=== PATIENT | female | born 1975 | race African-American/Black ===

== ENCOUNTER 2022-07-02 15:37 | Emergency (ER) | payer BC, OTHER ==
[~2022-07-02] VITALS: Ht 165.1 cm; Wt 118.0 kg
[2022-07-02 16:52] VITALS: BP 145/96
[2022-07-02 17:29] LABS: Basophils # (auto) 0 10 ^3/uL (0-0.2); Eosinophils # (auto) 0.1 10 ^3/uL (0-0.8); Hematocrit 38.1 % (36.0-46.0); Monocytes # (auto) 0.4 10 ^3/uL (0-1.3); Monocytes % (auto) 4.6 % (0.0-12.0); Neutrophils % (auto) 75.2 % (37.0-80.0); Red Cell Distribution Width 15.5 % (11.8-14.3)
[2022-07-02 17:31] LABS: Basophils % (auto) 0.4 % (0.0-2.0); Eosinophils % (auto) 1.5 % (0.0-7.0); Hemoglobin 12.1 g/dL (12.2-16.2); Lymphocytes # (auto) 1.5 10 ^3/uL (0.4-5.4); Lymphocytes % (auto) 18.3 % (10.0-50.0); Mean Corpuscular Hemoglobin 26.2 pg (28.0-32.0); Mean Corpuscular Hgb Conc. 31.7 g/dL (32.0-36.0); Mean Corpuscular Volume 82.6 fL (80.0-100.0); Neutrophils # (auto) 6.2 10 ^3/uL (1.6-8.6); Nucleated Red Blood Cells % 0.1 %; Red Blood Cells 4.61 10^6/uL (4.0-5.20); White Blood Cell 8.3 10^3/uL (4.4-10.8)
[2022-07-02 17:41] LABS: INR 0.97 (0.9-1.15); Partial Thromboplastin Time 22.9 sec (24.6-33.4)
[2022-07-02 17:48] LABS: Albumin 3.9 g/dL (3.4-5.0); Calcium 8.9 mg/dL (8.5-10.1); Potassium 4.1 mmol/L (3.5-5.1)
[2022-07-02 17:51] LABS: BUN/Creatinine Ratio 10.5; Bilirubin, Total 0.2 mg/dL (0.2-1.0)
== END 2022-07-02 20:00 | disposition home or self-care (01) ==
LOC: ER 15:37
DX: D25.9 Leiomyoma of uterus, unspecified (principal); N93.8 Other specified abnormal uterine and vaginal bleeding; R10.2 Pelvic and perineal pain
CPT/HCPCS: 36415; 76856; 80053; 84702; 85025; 85610; 85730

== ENCOUNTER 2025-08-04 06:18 | Emergency (ER) | payer BC, MEDICAID ==
[~2025-08-04] VITALS: Ht 165.1 cm; Wt 120.0 kg
--- NOTE | 2025-08-04 07:10 | ED.PDOC ---
History of Present Illness HPI Comments A 50 YEAR OLD FEMALE PRESENTS TO THE ED WITH COMPLAINT OF HIGH BLOOD PRESSURE. PATIENT STATES SHE HAS BEEN HAVING HIGH BLOOD PRESSURE FOR THE PAST THREE DAYS. PATIENT STATES SHE WENT TO [facility] YESTERDAY AND HAD LABS DONE AND WAS GIVEN PRESCRIPTION ON HCTZ AND DISCHARGED. PATIENT TAKES CAME TO THE ED TODAY DUE TO A CONSTANT RIGHT-SIDED HEADACHE AND STATES DESPITE TAKING THE PRESCRIBED HCTZ FOR BLOOD PRESSURE AT HOME, BP WAS STILL HIGH AND CAME TO THE ED FOR EVALUATION. PATIENT IN THE ED HAS BLOOD PRESSURE OF 164/107 AND HEART RATE 117 WITH OTHERWISE STABLE VITALS. PATIENT STATES PATIENT DENIES FEVER, CHILLS, SHORTNESS OF BREATH, CHEST PAIN, ABDOMINAL PAIN, NAUSEA, VOMITING, HEADACHE, OR OTHER COMPLAINTS. NO OTHER SYMPTOMS OR MODIFYING FACTORS AT THIS TIME. PATIENT IS ALERT, ORIENTED X 4, AND HAS STEADY GAIT. Chief Complaint: High Blood Pressure Time Seen by MD: 07:06 Reviewed Notes: Nurses Notes, Medications Allergies: Coded Allergies: No Known Drug Allergy (Verified Allergy, Unknown, 08/04/25) Information Source: Patient Mode of Arrival: Ambulatory Severity: Moderate Timing: Days Duration: Since onset Prehospital treatment: None Medication Refill: For: Pain (RIGHT SIDE HEAD ), For: Hypertension Past Medical History PAST MEDICAL HISTORY: HTN Surgical History: Denies all surgeries DIRECTOR OF ACADEMIC History: Denies all DIRECTOR OF ACADEMIC Hx Family History Family History: Reviewed,noncontributory to illness Social History Smoker: Non-Smoker Alcohol: Denies ETOH Use Drugs: Denies Drug Use Lives In: Home Constitutional: reports: others (ANXIOUS); denies: chills, diaphoresis, fatigu e, fever, malaise, sweats, weakness EENTM: denies: blurred vision, double vision, ear bleeding, ear discharge, ear drainage, ear pain, ear ringing, eye pain, eye redness, hearing loss, mouth pain, mouth swelling, nasal discharge, nose bleeding, nose congestion, nose pain, photophobia, tearing, throat pain, throat swelling, voice changes, others Respiratory: denies: cough, hemoptysis, orthopnea, SOB at rest, shortness of breath, SOB with excertion, stridor, wheezing, others Cardiovascular: denies: chest pain, dizzy spells, diaphoresis, Dyspnea on exertion, edema, irregular heart beat, left arm pain, lightheadedness, palpitations, PND, syncope, others Gastrointestinal: denies: abdomen distended, abdominal pain, blood streaked bowels, constipated, diarrhea, dysphagia, difficulty swallowing, hematemesis, melena, nausea, poor appetite, poor fluid intake, rectal bleeding, rectal pain, vomiting, others Genitourinary: denies: abnormal vagina bleeding, burning, dyspareunia, dysuria, flank pain, frequency, hematuria, incontinence, pain, , vagina discharge, urgency, others Neurological: reports: headache; denies: dizziness, fainting, left sided numbness, left sided weakness, numbness, paresthesia, pre-existing deficit, right sided numbness, right sided weakness, seizure, speech problems, tingling, tremors, weakness, others Musculoskeletal: denies: back pain, gout, joint pain, joint swelling, muscle pain, muscle stiffness, neck pain, others Integumetry: denies: bruises, change in color, change in hair/nails, dryness, laceration, lesions, lumps, rash, wounds, others Allergic/Immunocompromised: denies: Difficulty Healing, Frequent Infections, Hives, Itching, others Hematologic/Lymphatic: denies: anemia, blood clots, easy bleeding, easy bruising, swollen glands, others Endocrine: denies: excessive hunger, excessive sweating, excessive thirst, excessive urination, flushing, intolerance to cold, intolerance to heat, unexplained weight gain, unexplained weight loss, others Psychiatric: reports: anxiety; denies: bipolar disorder, depression, hopeless, panic disorder, schizophrenia, sleepless, suicidal, others All Other Systems: Reviewed and Negative Physical Exam General Appearance: Mild Distress, Obese, Other (ANXIOUS) HEENT: Normal ENT Inspection, Pharynx Normal, TMs Normal Neck: Full Range of Motion, Non-Tender, Normal, Normal Inspection Respiratory: Chest Non-Tender, Lungs Clear, No Accessory Muscle Use, No Respiratory Distress, Normal Breath Sounds Cardiovascular: No Edema, No JVD, No Murmur, No Gallop, Normal Peripheral Pulses, Regular Rate/Rhythm Breast Exam: Deferred Gastrointestinal: No Organomegaly, Non Tender, No Pulsatile Mass, Normal Bowel Sounds, Soft Genitalia: Deferred Pelvic: Deferred Rectal: Deferred Extremities: No calf tenderness, Normal capillary refill, Normal inspection, Normal range of motion, Non-tender, No pedal edema Musculoskeletal : Apperance: Normal Neurologic: Alert, architectural examiner II-XII nml as Tested, No Motor Deficits, Normal Affect, Normal Mood, No Sensory Deficits Cerebellar Function: Normal Reflexes: Normal Skin: Dry, Normal Color, Warm Peripheral Pulses: 2+ carotid (R), 2+ carotid (L) Lymphatic: No Adenopathy Was a procedure done? Was a procedure done?: No Differential Dx Considerations may include: ESSENTIAL HYPERTENSION , HYPERTENSIVE URGENCY, HEADACHE, MIGRAINE, UTI, X-Ray, Labs, Meds, VS Vital Signs Date Time Temp Pulse Resp B/P (MAP) Pulse Ox O2 Delivery O2 Flow Rate FiO2 08/04/25 08:32 98.3 86 18 151/96 (114) 98 98.3 08/04/25 08:13 83 20 165/106 (125) 98 08/04/25 08:09 165/106 08/04/25 07:39 152/102 08/04/25 07:24 91 18 98 Room Air 08/04/25 07:24 74 18 152/102 (119) 98 08/04/25 06:19 98.5 117 20 164/107 99 98.5 Lab Test 08/04/25 07:48 08/04/25 06:54 Range/Units White Blood Count 6.4 4.4-10.8 10^3/uL Red Blood Count 4.50 4.0-5.20 10^6/uL Hemoglobin 10.9 L 12.2-16.2 g/dL Hematocrit 34.1 L 36.0-46.0 % Mean Corpuscular Volume 75.8 L 80.0-100.0 fL Mean Corpuscular Hemoglobin 24.2 L 28.0-32.0 pg Mean Corpuscular Hemoglobin Concent 32.0 32.0-36.0 g/dL Red Cell Distribution Width 18.4 H 11.8-14.3 % Platelet Count 349 140-450 10^3/uL Mean Platelet Volume 7.9 6.9-10.8 fL Neutrophils (%) (Auto) 73.2 37.0-80.0 % Lymphocytes (%) (Auto) 12.8 10.0-50.0 % Monocytes (%) (Auto) 10.3 0.0-12.0 % Eosinophils (%) (Auto) 2.7 0.0-7.0 % Basophils (%) (Auto) 1.0 0.0-2.0 % Neutrophils # (Auto) 4.7 1.6-8.6 10 ^3/uL Lymphocytes # (Auto) 0.8 0.4-5.4 10 ^3/uL Monocytes # (Auto) 0.7 0-1.3 10 ^3/uL Eosinophils # (Auto) 0.2 0-0.8 10 ^3/uL Basophils # (Auto) 0.1 0-0.2 10 ^3/uL Nucleated Red Blood Cells 0.0 % Sodium Level 140 136-145 mmol/L Potassium Level 4.0 3.5-5.1 mmol/L Chloride Level 105 98-107 mmol/L Carbon Dioxide Level 25 20-31 mmol/L Anion Gap 10 5-15 Blood Urea Nitrogen 10 9-23 mg/dL Creatinine 0.89 0.550-1.02 mg/dL Glomerular Filtration Rate Calc 79 >90 mL/min BUN/Creatinine Ratio 11.2 10.0-20.0 Serum Glucose 81 74-106 mg/dL Calcium Level 9.1 8.7-10.4 mg/dL Thyroid Stimulating Hormone (TSH) 1.35 0.55-4.78 uIU/mL Urine Color Straw Yellow Urine Clarity Clear Clear Urine pH 5.5 5.0-9.0 Urine Specific [place] 1.009 1.001-1.035 Urine Protein Negative Negative Urine Ketones Negative Negative Urine Blood Negative Negative /uL Urine Nitrite Negative Negative Urine Bilirubin Negative Negative Urine Urobilinogen Normal Negative mg/dL Urine Leukocyte Esterase Negative Negative /uL Urine RBC <1 0 - 4 /hpf Urine Microscopic WBC 1 0-5 /HPF Urine Squamous Epithelial Cells Few <5 /hpf Urine Bacteria None seen None Seen /hpf Urine Glucose Normal Normal mg/dL Current Medications Medications (Trade) Dose Ordered Sig/Isa Route Start Time Stop Time Status Last Admin Clonidine HCl (Catapres Tablet) 0.1 mg ONCE ONCE PO 08/04/25 07:30 08/04/25 07:31 DC 08/04/25 07:39 PATIENT: ABDIRAHMAN YODERCT: [id number]: [id number] : 1975 LOC: ER ROOM / BED: / AGE / SEX: 50 / F ADM STATUS: REG ER SERVICE [id number] ORDERING PHYSICIAN: MANGO PATRICIA PROCEDURE(s): HWOCT - HEAD WITHOUT CONTRAST REASON: HTN WITH RIGHT SIDE HEAD PAIN ORDER NUMBER(s): [id number], ACCESSION NUMBER(s): [id number] CT HEAD WITHOUT CONTRAST Indication: HTN WITH RIGHT SIDE HEAD PAIN EXAM DATE: 08/04/2025 07:15 AM COMPARISON: None TECHNIQUE: CT of the head without intravenous contrast. RADIATION DOSE: CTDIvol: 57 mGy, DLP: 909 mGy*cm FINDINGS: There is no intracranial hemorrhage. There is no extra-axial fluid, mass, mass effect or midline shift. The ventricles are midline and normal in size. Basilar cisterns are patent. Mendez-white differentiation is maintained. The mastoids are well pneumatized. 1.4 cm left maxillary sinus mucosal retention cyst / polyp.. Imaged portion of the orbits are unremarkable. IMPRESSION: No intracranial hemorrhage or mass effect. ATED BY: FIDELIA HEALY MD DICTATED DATE/TIME: 08/04/25748 SIGNED BY: FIDELIA HEALY MD SIGNED DATE/TIME: 08/04/25748 CC: X-Ray, Labs, Meds, VS Comment COURSE: EXTERNAL MEDICAL RECORDS REVIEWED: [NONE] INDEPENDENT HISTORIANS: [NONE] SOCIAL DETERMINANTS OF HEALTH: [NONE] LABS ORDERED: CBC, BMP, UA, TSH REVIEWED AND INTERPRETED RESULTS: NONE IMAGING ORDERED: CT HEAD WITHOUT CONTRAST TREATMENTS ORDERED: CLONIDINE 0.1MG PO PROCEDURES PERFORMED: NONE CRITICAL CARE TIME: NONE I HAVE DISCUSSED THE PATIENT WITH THE ATTENDING PHYSICIAN DR. ALTMAN AND HE AGREES WITH THE PATIENT'S PLAN OF CARE AND DISPOSITION. BASED ON HISTORY OF PRESENT ILLNESS, AND PHYSICAL EXAM, PATIENT WILL BE DISCHARGED HOME. DISCUSSED PLAN FOR DISCHARGE HOME WITH RX [AMLODIPINE AND ULTRAM]. MEDICATION WARNINGS GIVEN. SHARED DECISION MAKING: DISCUSSED WITH PATIENT THAT THEIR WORKUP WAS NORMAL. PATIENT INSTRUCTED TO FOLLOW UP WITH PRIMARY CARE PROVIDER IN 1-2 DAYS FOR RE- EVALUATION OF SYMPTOMS. PATIENT VERBALIZES UNDERSTANDING TO RETURN TO ED FOR NEW OR WORSENING SYMPTOMS OR IF FOLLOW UP WITH PCP CANNOT BE OBTAINED. PATIENT FEELS COMFORTABLE GOING HOME AT THIS TIME. ALL QUESTIONS ADDRESSED AT TIME OF DISCHARGE. Time of 1ST Reevaluation: 07:30 Reevaluation 1ST: Unchanged Time of 2ND Reevaluation: 09:04 Reevaluation 2ND: Improved Patient Education/Counseling: Diagnosis, Treatment, Need For Follow Up Family Education/Counseling: Diagnosis, Treatment, No Family Present Medical Screening: No EMC Exist At This Time SEPSIS Sepsis Screen Date sepsis recognized/suspect: Aug 04, 2025 Time Sepsis recognized/suspect: 622 Recent Procedure: No On Antibiotic Therapy: No Respiratory Rate >20: No Heart Rate >90: Yes Temp<36 C (96.8 F) or >38.3 C: No SBP <90 or MAP <65 mmHG: No New Acute Mental Status Change: No Is the patient on CPAP, BIPAP,: No Physician Orders Head Without Contrast (08/04/25 06:53) Vital Signs Date Time Temp Pulse Resp B/P (MAP) Pulse Ox O2 Delivery O2 Flow Rate FiO2 08/04/25 08:32 98.3 86 18 151/96 (114) 98 98.3 08/04/25 08:13 83 20 165/106 (125) 98 08/04/25 08:09 165/106 08/04/25 07:39 152/102 08/04/25 07:24 91 18 98 Room Air 08/04/25 07:24 74 18 152/102 (119) 98 08/04/25 06:19 98.5 117 20 164/107 99 98.5 Laboratory Tests Test 08/04/25 07:48 White Blood Count 6.4 10^3/uL (4.4-10.8) Medications Medications Dose Ordered Sig/Isa Route Start Time Stop Time Status Last Admin Dose Admin Clonidine HCl 0.1 mg ONCE ONCE PO 08/04/25 07:30 08/04/25 07:31 DC 08/04/25 07:39 Departure 1 Departure Time of Disposition: 09:04 Impression: Primary Impression: Uncontrolled hypertension Additional Impressions: Headache Qualified Codes: G44.209 - Tension-type headache, unspecified, not intractable History of trigeminal neuralgia Disposition: 01 HOME / SELF CARE / HOMELESS Condition: Stable Additional Instructions: INSTRUCTIONS: FOLLOW-UP WITH PCP IN 1 TO 2 DAYS. TAKE MEDICATIONS PRESCRIBED. RETURN TO ED FOR ANY NEW OR WORSENING SYMPTOMS. e-Prescriptions Tramadol HCl (Tramadol HCl) 50 Mg Tab 50 MG PO BID, #20 TAB Prov: MANGO PATRICIA 08/04/25 Amlodipine Besylate (Amlodipine Besylate) 5 Mg Tab 1 TAB PO DAILY, #30 TAB Prov: MANGO PATRICIA 08/04/25 Discharged With: Self Critical Care Note Critical Care Time?: No Stability Stability form required: No Heart Score Heart Score: Heart Score Response (Comments) Value History N/A 0 EKG N/A 0 Age N/A 0 Risk Factors N/A 0 Troponin N/A 0 Total 0 I personally scribed for MANGO PATRICIA ([email or web address]) on 08/04/25 at 07:10. Electronically submitted by Shelly Sewell ([email or web address]). MANGO PATRICIA Aug 04, 2025 07:10
--- NOTE | 2025-08-04 07:47 | DVH ---
CT HEAD WITHOUT CONTRAST Indication: HTN WITH RIGHT SIDE HEAD PAIN EXAM DATE: 08/04/2025 07:15 AM COMPARISON: None TECHNIQUE: CT of the head without intravenous contrast. RADIATION DOSE: CTDIvol: 57 mGy, DLP: 909 mGy*cm FINDINGS: There is no intracranial hemorrhage. There is no extra-axial fluid, mass, mass effect or midline shift. The ventricles are midline and normal in size. Basilar cisterns are patent. Mendez-white differentiation is maintained. The mastoids are well pneumatized. 1.4 cm left maxillary sinus mucosal retention cyst / polyp.. Imaged portion of the orbits are unremarkable. IMPRESSION: No intracranial hemorrhage or mass effect.
[2025-08-04 07:58] LABS: Urine Protein, UAD Negative (Negative)
[2025-08-04 08:32] VITALS: BP 151/96; PULSE 86; RESP 18; TEMP 98.3; O2SAT 98
[2025-08-04 08:45] LABS: Hemoglobin 10.9 g/dL (12.2-16.2); Nucleated Red Blood Cells % 0.0 %
[2025-08-04 08:46] LABS: Hematocrit 34.1 % (36.0-46.0); Mean Corpuscular Hemoglobin 24.2 pg (28.0-32.0); Mean Corpuscular Volume 75.8 fL (80.0-100.0)
[2025-08-04 08:48] LABS: Chloride 105 mmol/L (98-107); Potassium 4.0 mmol/L (3.5-5.1); Sodium 140 mmol/L (136-145)
[2025-08-04 08:49] LABS: Anion Gap 10 (5-15); Calcium 9.1 mg/dL (8.7-10.4); Carbon Dioxide 25 mmol/L (20-31)
[2025-08-04 08:54] LABS: BUN/Creatinine Ratio 11.2 (10.0-20.0); Blood Urea Nitrogen 10 mg/dL (9-23); Glucose 81 mg/dL (74-106)
[2025-08-04] MEDS ORDERED: AMLO1TAB22 PO (09:11)
[2025-08-04] MEDS ORDERED: TRAM-626 PO (09:11)
[2025-08-05] MEDS ORDERED: OXCA300T4 PO (22:38)
== END 2025-08-04 09:17 | disposition home or self-care (01) ==
LOC: ER 06:18
DX: I10 Essential (primary) hypertension (principal); G50.0 Trigeminal neuralgia; R51.9 Headache, unspecified
CPT/HCPCS: 36415; 70450; 80048; 81001; 84443; 85025

== ENCOUNTER 2025-08-05 21:50 | Emergency (ER) | payer MEDICAID ==
[~2025-08-05] VITALS: Ht 165.1 cm; Wt 120.6 kg
[~2025-08-05 21:50] MED LIST: AMLO1TAB22 PO; TRAM-626 PO
--- NOTE | 2025-08-05 22:32 | ED.PDOC ---
History of Present Illness HPI Comments 50-year-old female who came to ER for headaches. Patient has been experiencing right-sided headaches for the past 4 days, associated right-sided neck pains, ear pain. Noted also elevated blood pressure Was seen multiple times for this issue, was prescribed several narcotics but offered no relief. Claims Tegretol worked but her blood pressure shoots up when she takes it. Was seen here yesterday, diagnosed with trigeminal neuralgia, has been prescribed tramadol and amlodipine but but claims her blood pressure and headache still persists. Upon arrival blood pressure was 159/114 mm Hg REVIEW OF SYSTEMS: General: No fever, no chills, or fatigue HEENT: No sore throat, no earache, no congestion, no neck pain. Cardiac: No chest pain. No palpitations. Lungs: No shortness of breath, no cough. GI: No nausea, no vomiting, no diarrhea, no constipation, no abdominal pain : No dysuria, frequency, or urgency. No hematuria. Musculoskeletal: No joint pain , no joint swelling, no extremity edema. Skin: No rash, no itching. Neuro: (+) headache, no dizziness, no weakness PHYSICAL EXAM: General: Awake, alert and oriented. No acute distress. Skin: Skin in warm, dry and intact without rashes or lesions. HEENT: The head is normocephalic and atraumatic. Conjunctivae are clear without exudates or hemorrhage. Sclera is non-icteric. No dental pain. No facial swelling. Neck: Normal range of motion. No JVD. Cardiac: Regular rate Respiratory: No signs of respiratory distress. No Stridor. Extremities: Upper and lower extremities are atraumatic in appearance without deformity. Neurological: The patient is awake, alert and oriented to person, place, and time with normal speech. Speech is clear. There is no facial asymmetry. Sensation intact bilateral face. Chief Complaint: Headache Time Seen by MD: 22:32 Reviewed Notes: Nurses Notes Allergies: Coded Allergies: Sulfa Antibiotics (Verified Allergy, Unknown, 08/05/25) Home Meds Active Scripts Oxcarbazepine (Trileptal) 300 Mg Tab, 300 MG PO BID for 10 Days, #20 TAB Prov:PABLO JOSUE MD 08/05/25 Tramadol HCl (Tramadol HCl) 50 Mg Tab, 50 MG PO BID, #20 TAB Prov:MANGO PATRICIA 08/04/25 Amlodipine Besylate (Amlodipine Besylate) 5 Mg Tab, 1 TAB PO DAILY, #30 TAB Prov:MANGO PATRICIA 08/04/25 Information Source: Patient Mode of Arrival: Ambulatory Past Medical History PAST MEDICAL HISTORY: HTN Surgical History: Denies all surgeries MILL MACHINIST History: Denies all MILL MACHINIST Hx Family History Family History: Reviewed,noncontributory to illness Social History Smoker: Non-Smoker Alcohol: Denies ETOH Use Drugs: Denies Drug Use Lives In: Home Was a procedure done? Was a procedure done?: No Differential Dx Considerations may include: Migraine headaches, trigeminal neuralgia, dental infection, cervical radiculopathy, other X-Ray, Labs, Meds, VS Vital Signs Date Time Temp Pulse Resp B/P (MAP) Pulse Ox O2 Delivery O2 Flow Rate FiO2 08/05/25 21:54 98.4 114 18 159/114 99 98.4 Current Medications Medications (Trade) Dose Ordered Sig/Isa Route Start Time Stop Time Status Last Admin Oxcarbazepine (Trileptal Tablet) 300 mg ONCE ONCE PO 08/05/25 22:45 08/05/25 22:54 DC 08/06/25 01:41 Time of 1ST Reevaluation: 22:26 Reevaluation 1ST: Unchanged Patient Education/Counseling: Need For Follow Up Family Education/Counseling: No Family Present SEPSIS Sepsis Screen Date sepsis recognized/suspect: Aug 05, 2025 Time Sepsis recognized/suspect: 2199 Recent Procedure: No On Antibiotic Therapy: No Respiratory Rate >20: No Heart Rate >90: No Temp<36 C (96.8 F) or >38.3 C: No SBP <90 or MAP <65 mmHG: No New Acute Mental Status Change: No Is the patient on CPAP, BIPAP,: No Vital Signs Date Time Temp Pulse Resp B/P (MAP) Pulse Ox O2 Delivery O2 Flow Rate FiO2 08/05/25 21:54 98.4 114 18 159/114 99 98.4 Medications Medications Dose Ordered Sig/Isa Route Start Time Stop Time Status Last Admin Dose Admin Oxcarbazepine 300 mg ONCE ONCE PO 08/05/25 22:45 08/05/25 22:54 DC 08/06/25 01:41 Departure 1 Departure Time of Disposition: 22:37 Impression: Primary Impression: Facial pain Disposition: 01 HOME / SELF CARE / HOMELESS Condition: Stable Additional Instructions: ED DISCHARGE INSTRUCTIONS Instructions: Please read all instructions provided in this packet carefully. STOP TAKING TEGRETOL. START TAKING OXCARBAZEPINE. DISCONTINUE MEDICATION IF YOU HAVE ANY CONCERNING SIDE EFFECTS. Although you have been discharged from the Emergency Department, this does not mean that you have a "clean bill of health". No definitive diagnosis for your symptoms has been made today. It is possible that you are in the process of developing a serious illness. This is why you must return to the ED without fail if any new or worsening symptoms (especially if your symptoms include chest pain, trouble breathing, abdominal pain, fever, headache, confusion, trouble seeing, or trouble walking) It is also very important that you see a primary care provider (PCP) within the next 3-5 days to follow up. If you are unable to get an appointment, return to the ED for re-evaluation within 3-5 days. It is very important that you follow up with your primary care physician (PCP). You can call your insurance company or check your insurance card to find out who your PCP is. Or call [phone] to schedule an appointment with a new primary care provider. WHY YOU NEED A PCP: Establishing and regularly seeing a PCP and undergoing routine screenings are vital for maintaining good health. Your PCP acts as your main healthcare partner, helping you stay healthy, manage chronic conditions, and detect potential problems early. Routine screenings, like mammograms or colonoscopies, can catch diseases like cancer early when treatment is often more effective. A screening test is like a quick check-up your doctor does to see if there are any problems starting in your body, even when you feel okay, so they can find them early when they're easier to fix. Why Establish a Relationship with a Primary Care Physician (PCP)? Preventive Care: Your PCP focuses on preventing illness through regular checkups, vaccinations, and health advice tailored to your needs. Chronic Disease Management: If you have a chronic condition, like diabetes or high blood pressure, your PCP can help you manage it effectively through monitoring, medication management, and lifestyle recommendations. Early Detection: Regular visits allow your PCP to track your health over time, identify subtle changes, and order necessary screenings or tests to catch potential problems early. Trusted Resource: Your PCP gets to know you, your medical history, and your concerns, making them a trusted resource for all your health-related questions. Referrals: If you need specialized care, your PCP will refer you to the appropriate specialists and help coordinate your care. Continuity of Care: Your PCP ensures that your healthcare is coordinated, especially after hospital stays or visits to other specialists. Why are Routine Screenings Important? Early Detection: Many serious illnesses like cancer, diabetes and heart disease, can be treated more successfully when detected early. Screenings like lab tests, blood pressure checks, mammograms, colonoscopies, and Pap smears are designed to catch these diseases early. Preventing Disease: Some screenings can actually help prevent diseases from developing. Peace of Mind: Knowing that you are up-to-date on your screenings can provide peace of mind and reduce anxiety about potential health problems. In summary, establishing a relationship with a primary care physician and following their recommendations for routine screenings is important for staying healthy and managing your health effectively. It's an investment in your well- being that can pay off in the long run. e-Prescriptions Oxcarbazepine (Trileptal) 300 Mg Tab 300 MG PO BID for 10 Days, #20 TAB Prov: PABLO JOSUE MD 08/05/25 Comments 50-year-old female with right facial pain suspected to be due to trigeminal neuralgia. Patient well-appearing, nontoxic. Advised prompt follow-up with PCP, return to the ED with any new, worsening or concerning symptoms. Critical Care Note Critical Care Time?: No Stability Stability form required: No Heart Score Heart Score: Heart Score Response (Comments) Value History N/A 0 EKG N/A 0 Age N/A 0 Risk Factors N/A 0 Troponin N/A 0 Total 0 I personally scribed for PABLO JOSUE MD ([email or web address]) on 08/05/25 at 22:32. Electronically submitted by aJmes Goldberg ([facility]). PABLO JOSUE MD Aug 05, 2025 22:32
[2025-08-05] MEDS ORDERED: OXCA300T4 PO (22:38)
[2025-08-06 01:41] VITALS: RESP 18; TEMP 98; O2SAT 98
[2025-08-06 02:13] VITALS: BP 148/93; PULSE 94
== END 2025-08-06 02:13 | disposition home or self-care (01) ==
LOC: ER 21:50
DX: R51.9 Headache, unspecified (principal); I10 Essential (primary) hypertension; Z79.899 Other long term (current) drug therapy; Z88.2 Allergy status to sulfonamides